=== PATIENT | male | born 1935 | race Caucasian/White ===

== ENCOUNTER → 2017-07-16 | Outpatient (CLI) | payer MEDICARE ==
[2015-01-22 13:22] VITALS: BMI 28.4
[~2017-07-16] MED LIST: AMLO-96 PO; CYCL-277 PO; HYDR-2966 PO; L.AC1CAP6 PO; LOSA25TA50 PO; MOM PO; OMEP40CA48 PO; ROSU20TA23 PO; TAMS0.4C70 PO; TRAM-420 PO; [UNRECOGNIZED DRUG - CODE] PO
--- NOTE | 2017-07-16 17:46 | RADIOLOGY IMAGING REPORT ---
FACILITY: [facility] PATIENT NAME: Tomi Peters : 1935 MR: [id number] V: [id number] EXAM DATE: ORDERING PHYSICIAN: NISH MITCHELL TECHNOLOGIST: Location: [facility] - [place] Patient: Tomi Peters : 1935 Visit/Account:[id number] Date of Sevice: 07/16/2017 CAROTID HISTORY: Left carotid stenosis COMPARISON: July 16, 2016 FINDINGS: Grayscale, duplex and color Doppler interrogation of the extracranial carotid and vertebral arteries was performed bilateral. On the right, peak systolic velocities within the common and internal carotid arteries are 114 and 11 9 cm/sec respectively. There is a small to moderate amount of plaque at the right carotid bulb exten ding into the proximal right internal carotid artery. Peak systolic velocity right carotid bulb is 1 43 cm/s. Antegrade flow within the common, internal and external carotid arteries as well as vertebr al artery. ICA/CCA ratio 1.1. On the left, peak systolic velocities within the common and internal carotid arteries are 129 and 126 cm/sec respectively. There is a mild amount of plaque at the left carotid bulb with a moderate amou nt of plaque extending into the left external carotid artery. Antegrade flow within the common, inte rnal and external carotid arteries as well as vertebral artery. ICA/CCA ratio 1. IMPRESSION: There is a small to moderate amount of plaque at the right carotid bulb extending the proximal right internal carotid artery although no hemodynamically significant lesions identified within the right I CA. There is a mildly elevated peak systolic velocity at the right carotid bulb 143 cm/s There is a small amount of plaque at the left carotid bulb and a moderate amount of plaque in the lef t external carotid artery. There is minimal elevation of the peak systolic velocity in the left ICA of 126 cm/s Velocity criteria are extrapolated from diameter data as defined by the Society of Radiologists in [place] trasound Consensus Conference Radiology 2003; 229;340-346 Report Dictated By: Faustina Garcia MD at 07/16/2017 5:37 PM Report E-Signed By: Faustina Garcia MD at 07/16/2017 5:41 PM WSN:[email or web address]
== END ==
LOC: US 02:38
PROVIDERS: ATTEND Surgery Vascular Surgery
DX: I65.23 Occlusion and stenosis of bilateral carotid arteries (principal)
CPT/HCPCS: 93880

== ENCOUNTER → 2018-03-30 | Outpatient (CLI) | payer MEDICARE ==
[2015-01-22 13:22] VITALS: BMI 28.4
[~2018-03-30] MED LIST changes: +AMLO-111 PO; -AMLO-96 PO; +IOPAMIDOL 76% 100 ML INFUS BTL 0 ML ONE; +IOPAMIDOL 76% 100 ML INFUS BTL 100 ML ONE; -LOSA25TA50 PO; +LOSA25TA57 PO
--- NOTE | 2018-03-30 18:11 | RADIOLOGY IMAGING REPORT ---
FACILITY: [facility] - [place] PATIENT NAME: Tomi Peters : 1935 MR: [id number] V: [id number] EXAM DATE: ORDERING PHYSICIAN: JAVID GARY TECHNOLOGIST: [facility] Patient: Tomi Peters : 1935 Visit/Account:[id number] Date of Sevice: 03/30/2018 ABDOMEN/PELVIS WITH CONTRAST HISTORY: Lower abdomen pain starting several days ago TECHNIQUE: Following administration of IV contrast contiguous axial images acquired through the abdom en/pelvis. Coronal and sagittal reformatting also performed.Dose Lowering Technique One of the following dose optimization techniques was utilized in the performance of this exam: Autom ated exposure control; adjustment of the mA and/or kV according to the patient's size; or use of an i terative reconstruction technique. Specific details can be referenced in the facility's radiology C T exam operational policy. CONTRAST: 75 mL Isovue-370 COMPARISON: CT abdomen and pelvis January 22, 2015 FINDINGS: Visualized lung bases: 3 mm calcified nodule right lower lobe. Also noted is a 4 mm noncalcified no dule lateral aspect of the right lower lobe that remains stable. There is linear scarring in the low er lobes . There are coronary artery calcifications are present Hepatobiliary: Negative. Spleen: Negative. Adrenals: There is mild thickening the adrenal glands Pancreas: There is a 1 cm round hypodensity in the uncinate process of the pancreas although this giraldo s remained stable Kidneys ureters or bladder: There is a bilobed right renal cyst measuring 2.9 cm in diameter the ther e appear to be parapelvic cysts in the left kidney . 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 In the mid to lower sigmoid colon there is a segment of extensive wall thickening with infiltrative changes seen in the pericolonic fat consistent with ac [place] diverticulitis. No evidence of free perforation or peridiverticular abscess there has been a rig ht hemicolectomy. There is a small hiatal hernia Vessels/spaces/nodes: There are moderate atherosclerotic calcifications Bones/soft tissues: There are postsurgical changes lower lumbar spine and extensive spondylotic mohr ges in the visualized thoracolumbar spine Additional findings: None pertinent. IMPRESSION: Findings are consistent with acute diverticulitis in the sigmoid colon with no evidence of peridivert icular abscess or free perforation Postsurgical changes from a right hemicolectomy. Additional chronic findings as described Report Dictated By: Faustina Garcia MD at 03/30/2018 5:58 PM Report E-Signed By: Faustina Garcia MD at 03/30/2018 6:06 PM WSN:[email or web address]
== END ==
LOC: CT 11:21
PROVIDERS: ATTEND Family Medicine
DX: Z90.49 Acquired absence of other specified parts of digestive tract (principal); K57.80 Diverticulitis of intestine, part unspecified, with perforation and abscess without bleeding; R10.817 Generalized abdominal tenderness
CPT/HCPCS: 74177; Q9967

== ENCOUNTER → 2018-12-03 | Outpatient (CLI) | payer MEDICARE ==
[2015-01-22 13:22] VITALS: BMI 28.4
[~2018-12-03] MED LIST changes: -AMLO-111 PO; +AMLO-125 PO; -IOPAMIDOL 76% 100 ML INFUS BTL 0 ML ONE; -IOPAMIDOL 76% 100 ML INFUS BTL 100 ML ONE; -ROSU20TA23 PO; +ROSU20TA24 PO
--- NOTE | 2018-12-03 09:24 | RADIOLOGY IMAGING REPORT ---
FACILITY: [facility] - [place], [place] PATIENT NAME: Tomi Peters : 1935 MR: [id number] V: [id number] EXAM DATE: ORDERING PHYSICIAN: YIFAN MCCORMICK TECHNOLOGIST: Location: [facility] - [place] Patient: Tomi Peters : 1935 Visit/Account:[id number] Date of Sevice: 12/03/2018 Exam type: L-SPINE >4 VIEWS History: Right-sided sciatica Comparison: MR lumbar spine November 01, 2013 Findings: Standing AP and lateral views in flexion extension and neutral positioning demonstrate five nonrib-be aring lumbar-type vertebral bodies. There is a dextroconvex scoliosis present with the apex at L2-3. Anterior osteophytes are seen throughout the lumbar spine. There is severe disc space narrowing at L 1-2 L2-3 and L3-4. There is mild to moderate disc space narrowing at L4-5 and L5-S1. There are bila teral pedicle screws at L5 and S1 with intervertebral disc spacer. There are posterior fixation andres melita at L3-4 and L4-5. There is a four mm retrolisthesis of L3 with respect L4 on the neutral and e xtension views with resolution of this finding on the flexion views. Incidentally noted are extensiv e vascular calcifications in the abdominal aorta IMPRESSION: 1. 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
--- NOTE | 2018-12-03 14:26 | RADIOLOGY IMAGING REPORT ---
FACILITY: [facility] PATIENT NAME: Tomi Peters : 1935 MR: [id number] V: [id number] EXAM DATE: ORDERING PHYSICIAN: YIFAN MCCORMICK TECHNOLOGIST: Location: [facility] Patient: Tomi Peters : 1935 Visit/Account:[id number] Date of Sevice: 12/03/2018 EXAMINATION: MRI lumbar spine without IV contrast HISTORY: Low back pain, right sciatica for 5 years COMPARISON: 11/01/2013 TECHNIQUE: Multi-planar, multi-sequence lumbar spine MRI was performed without intravenous contrast administration. FINDINGS: Bilateral pedicle fusion of L5 and S1. Alignment: Straightening of the normal lumbar lordosis. Vertebral marrow signal: There is marrow edema signal greatest involving the superior acetabular the L5 5 vertebral body and right aspect of L4 with additional signal scattered in the L2 and L3 vertebra l bodies. Distal thoracic cord: Negative. Conus: negative, terminates at L1 Cauda equina: Negative. Paravertebral soft tissues: Negative. Visualized abdominal and pelvic structures: Negative. Disc Spaces: Lower thoracic spine: Normal. L1-2: Disc endplate degeneration is with disc osteophyte resulting in moderate spinal canal stenosis, slightly progressed since the prior study. Mild bilateral foraminal stenosis is unchanged.. L2-3: Disc and endplate degeneration with disc osteophyte and facet arthrosis with ligamentous thicke yunior has progressed since the prior study now resulting in moderate to severe spinal canal stenosis. Left greater than right foraminal stenosis has also's increased. L3-4: Disc endplate degeneration with progressive loss of disc height. Surgical device noted in the p osterior elements. Surgical decompression in the posterior epidural space noted relieving previously described identified stenosis of the thecal sac. Moderate left greater than right foraminal stenosis is not significantly changed. L4-5: Disc degeneration with broad disc bulge has progressed since the prior study. There is bilatera l facet arthrosis. There is a right paracentral disc extrusion. Severe right foraminal stenosis has p rogressed. Mild left foraminal stenosis is noted. Severe spinal canal stenosis is now present. L5-S1: Disc degeneration with progressive loss of disc height and a central annular fissure which is new since the prior study. Moderate to severe right foraminal stenosis has slightly progressed as wel l. IMPRESSION: 1. L5-S1 fusion. 2. Marrow edema noted within the L2-L5 vertebral bodies, greatest in L5, likely related to degenerati ve Modic type I changes. 3. Progressive degenerative changes as described above. This is greatest at the L4-5 level where ther e is new right paracentral disc extrusion as well as other degenerative changes now resulting in juani re spinal canal stenosis and severe right foraminal stenosis. Report Dictated By: JACI GALICIA at 12/03/2018 2:01 PM Report E-Signed By: JACI GALICIA at 12/03/2018 2:17 PM WSN:[email or web address]
== END ==
LOC: RAD 07:36
PROVIDERS: ATTEND Neurological Surgery
DX: M43.06 Spondylolysis, lumbar region (principal)
CPT/HCPCS: 72120; 72148